=== PATIENT | female | born 1955 | race Caucasian/White ===

== ENCOUNTER 2020-06-18 03:52 | Inpatient (IN) | payer BC ==
[~2020-06-18] VITALS: Ht 162.5 cm; Wt 96.2 kg
[~2020-06-18 03:52] MED LIST: ANUSOL-HC25 MG R; DULCOLAX10 MG RC; EXCEDRIN PO; MIRALAX POWDER17 G1 PO; ORASONE5 MG PO
[2020-06-18 04:32] VITALS: BP 142/53
[2020-06-18 05:53] LABS: ALBUMIN 2.5 gm/dl (3.1-4.5); ALKALINE PHOSPHATASE 80 U/L (45-117); BUN 19 mg/dl (7-24); CHLORIDE 97 mmol/L (98-107); CPK 140 U/L (26-192); CREATININE 0.69 mg/dL (0.55-1.02); LDH 418 U/L (84-246); POTASSIUM 2.5 mmol/L (3.5-5.1); SGOT/AST 37 IU/L (3-35); SGPT/ALT 38 U/L (12-78); SODIUM 141 mmol/L (136-145); TOTAL PROTEIN 6.2 gm/dL (6.4-8.2)
[2020-06-18 06:04] LABS: MEAN CELL VOLUME 92.2 fl (81.0-99.0); MEAN CORPUSCULAR HGB 30.1 pg (27.0-31.0); MEAN CORPUSCULAR HGB CONC 32.6 g/dl (33.0-37.0); MEAN PLATELET VOLUME 10.8 fl (9.6-12.3); NUCLEATED RED BLOOD CELL 0.4 % (0.0-0.0); PLATELET COUNT AUTOMATED 365 10*3/uL (130-400); RED BLOOD COUNT 4.12 10*6/uL (4.10-5.10); RED CELL DISTRI WIDTH 13.4 % (0-14.5)
[2020-06-18 06:45] LABS: ATYPICAL LYMPHS 2 % (0-0); TOTAL CELLS COUNTED 100 #CELLS
[2020-06-18 06:46] LABS: PLATELET SUFFICIENCY NORMAL (NORMAL)
[2020-06-18 10:06] LABS: ACT PARTIAL THROMBO TIME 24.2 SECONDS (20.0-32.1)
[2020-06-18 10:57] VITALS: BP 154/65
[2020-06-18 13:37] LABS: ABG BASE EXCESS 10.1 mmol/L (-2.0-2.0); ARTERIAL BLOOD GAS PH 7.522 (7.35-7.45)
[2020-06-18 16:00] VITALS: BP 151/62
[2020-06-18] MEDS ORDERED: HYDROCHLOROTHIA25 M1 PO (17:12)
[2020-06-18 20:00] VITALS: BP 112/51
[2020-06-19] VITALS: BP 138/67
[2020-06-19 07:06] LABS: HEMATOCRIT 33.8 % (37.0-47.0); MEAN CELL VOLUME 92.6 fl (81.0-99.0); MEAN CORPUSCULAR HGB 30.1 pg (27.0-31.0); MEAN CORPUSCULAR HGB CONC 32.5 g/dl (33.0-37.0); MEAN PLATELET VOLUME 10.7 fl (9.6-12.3); PLATELET COUNT AUTOMATED 363 10*3/uL (130-400); RED BLOOD COUNT 3.65 10*6/uL (4.10-5.10); RED CELL DISTRI WIDTH 13.7 % (0-14.5); WHITE BLOOD COUNT 8.3 10*3/uL (4.8-10.8)
[2020-06-19 07:14] LABS: ALBUMIN 2.2 gm/dl (3.1-4.5); BUN 21 mg/dl (7-24); CHLORIDE 103 mmol/L (98-107); CREATININE 0.57 mg/dL (0.55-1.02); LDH 335 U/L (84-246); POTASSIUM 3.1 mmol/L (3.5-5.1); SGOT/AST 25 IU/L (3-35); SGPT/ALT 32 U/L (12-78); SODIUM 141 mmol/L (136-145); TOTAL PROTEIN 5.4 gm/dL (6.4-8.2)
[2020-06-19 07:15] LABS: ALKALINE PHOSPHATASE 71 U/L (45-117)
[2020-06-19 07:17] LABS: CPK 47 U/L (26-192)
[2020-06-19 08:00] VITALS: BP 132/65
[2020-06-19 08:41] LABS: ATYPICAL LYMPHS 3 % (0-0); PLATELET SUFFICIENCY NORMAL (NORMAL); TOTAL CELLS COUNTED 100 #CELLS
[2020-06-19 08:50] LABS: ABG BASE EXCESS 9.6 mmol/L (-2.0-2.0); ARTERIAL BLOOD GAS PH 7.509 (7.35-7.45)
[2020-06-19 12:00] VITALS: BP 129/47
[2020-06-19 18:00] VITALS: BP 118/54
[2020-06-19 20:00] VITALS: BP 126/57
[2020-06-20] VITALS: BP 124/53
[2020-06-20 06:22] LABS: BASO % 0.1 % (0.0-1.0); HEMATOCRIT 33.9 % (37.0-47.0); LYMPH % 18.3 % (27.0-41.0); MEAN CELL VOLUME 93.6 fl (81.0-99.0); MEAN CORPUSCULAR HGB 30.1 pg (27.0-31.0); MEAN CORPUSCULAR HGB CONC 32.2 g/dl (33.0-37.0); MEAN PLATELET VOLUME 10.8 fl (9.6-12.3); MONO # 0.8 10*3/uL (0.1-1.0); MONO % 7.6 % (3.0-9.0); NEUT % 72.8 % (47.0-73.0); PLATELET COUNT AUTOMATED 373 10*3/uL (130-400); RED BLOOD COUNT 3.62 10*6/uL (4.10-5.10)
[2020-06-20 06:34] LABS: ALBUMIN 2.1 gm/dl (3.1-4.5); ALKALINE PHOSPHATASE 69 U/L (45-117); BUN 28 mg/dl (7-24); CHLORIDE 105 mmol/L (98-107); CPK 34 U/L (26-192); LDH 314 U/L (84-246); POTASSIUM 3.5 mmol/L (3.5-5.1); SGOT/AST 21 IU/L (3-35); SGPT/ALT 33 U/L (12-78); SODIUM 141 mmol/L (136-145); TOTAL PROTEIN 5.2 gm/dL (6.4-8.2)
[2020-06-20 08:00] VITALS: BP 146/70
[2020-06-20 10:03] LABS: ABG BASE EXCESS 5.9 mmol/L (-2.0-2.0); ARTERIAL BLOOD GAS PH 7.48 (7.35-7.45)
[2020-06-20 12:00] VITALS: BP 138/71
[2020-06-20 16:00] VITALS: BP 137/73
[2020-06-21] VITALS: BP 103/40
[2020-06-21 07:24] LABS: BASO % 0.2 % (0.0-1.0); EOS % 0.1 % (1.0-4.0); HEMATOCRIT 34.5 % (37.0-47.0); LYMPH # 2.1 10*3/uL (1.3-4.4); LYMPH % 19.5 % (27.0-41.0); MEAN CORPUSCULAR HGB 29.4 pg (27.0-31.0); MEAN CORPUSCULAR HGB CONC 31.3 g/dl (33.0-37.0); MONO # 0.8 10*3/uL (0.1-1.0); MONO % 7.7 % (3.0-9.0); NEUT # 7.7 10*3/uL (2.3-7.9); NEUT % 71.6 % (47.0-73.0); PLATELET COUNT AUTOMATED 367 10*3/uL (130-400); RED BLOOD COUNT 3.67 10*6/uL (4.10-5.10); RED CELL DISTRI WIDTH 13.8 % (0-14.5); WHITE BLOOD COUNT 10.8 10*3/uL (4.8-10.8)
[2020-06-21 07:28] LABS: ALBUMIN 2.2 gm/dl (3.1-4.5); BUN 25 mg/dl (7-24); CHLORIDE 106 mmol/L (98-107); CREATININE 0.59 mg/dL (0.55-1.02); LDH 296 U/L (84-246); POTASSIUM 3.5 mmol/L (3.5-5.1); SGOT/AST 43 IU/L (3-35); SGPT/ALT 46 U/L (12-78); SODIUM 141 mmol/L (136-145); TOTAL PROTEIN 5.4 gm/dL (6.4-8.2)
[2020-06-21 07:29] LABS: ALKALINE PHOSPHATASE 70 U/L (45-117); CPK 32 U/L (26-192)
[2020-06-21 08:00] VITALS: BP 146/60
[2020-06-21 08:56] LABS: ABG BASE EXCESS 6.7 mmol/L (-2.0-2.0); ARTERIAL BLOOD GAS PH 7.477 (7.35-7.45)
[2020-06-21 12:00] VITALS: BP 149/69
[2020-06-21 16:00] VITALS: BP 135/71
[2020-06-21 20:00] VITALS: BP 120/59
[2020-06-22] VITALS: BP 137/57
[2020-06-22 06:28] LABS: BASO % 0.1 % (0.0-1.0); HEMATOCRIT 36.1 % (37.0-47.0); LYMPH # 1.7 10*3/uL (1.3-4.4); LYMPH % 16.6 % (27.0-41.0); MEAN CORPUSCULAR HGB 29.4 pg (27.0-31.0); MEAN CORPUSCULAR HGB CONC 31.3 g/dl (33.0-37.0); MEAN PLATELET VOLUME 10.8 fl (9.6-12.3); MONO # 0.8 10*3/uL (0.1-1.0); MONO % 7.8 % (3.0-9.0); NEUT # 7.7 10*3/uL (2.3-7.9); NEUT % 74.3 % (47.0-73.0); PLATELET COUNT AUTOMATED 403 10*3/uL (130-400); RED BLOOD COUNT 3.84 10*6/uL (4.10-5.10); RED CELL DISTRI WIDTH 13.8 % (0-14.5); WHITE BLOOD COUNT 10.3 10*3/uL (4.8-10.8)
[2020-06-22 06:54] LABS: ALBUMIN 2.3 gm/dl (3.1-4.5); BUN 20 mg/dl (7-24); CHLORIDE 107 mmol/L (98-107); SODIUM 141 mmol/L (136-145)
[2020-06-22 06:58] LABS: ALKALINE PHOSPHATASE 73 U/L (45-117); CREATININE 0.58 mg/dL (0.55-1.02); LDH 273 U/L (84-246); SGOT/AST 40 IU/L (3-35); SGPT/ALT 62 U/L (12-78); TOTAL PROTEIN 5.4 gm/dL (6.4-8.2)
[2020-06-22 08:00] VITALS: BP 155/81
[2020-06-22 08:48] LABS: ABG BASE EXCESS 5.4 mmol/L (-2.0-2.0); ARTERIAL BLOOD GAS PH 7.456 (7.35-7.45)
[2020-06-22 12:00] VITALS: BP 156/75
[2020-06-22 16:00] VITALS: BP 121/64
[2020-06-22 20:00] VITALS: BP 130/64
[2020-06-23] VITALS: BP 128/66
[2020-06-23 07:33] LABS: BASO % 0.1 % (0.0-1.0); HEMATOCRIT 34.8 % (37.0-47.0); LYMPH % 18.7 % (27.0-41.0); MEAN CELL VOLUME 92.3 fl (81.0-99.0); MEAN CORPUSCULAR HGB 29.4 pg (27.0-31.0); MEAN CORPUSCULAR HGB CONC 31.9 g/dl (33.0-37.0); MEAN PLATELET VOLUME 11.4 fl (9.6-12.3); MONO # 0.9 10*3/uL (0.1-1.0); MONO % 8.5 % (3.0-9.0); NEUT # 7.7 10*3/uL (2.3-7.9); NEUT % 71.6 % (47.0-73.0); PLATELET COUNT AUTOMATED 366 10*3/uL (130-400); RED BLOOD COUNT 3.77 10*6/uL (4.10-5.10); RED CELL DISTRI WIDTH 13.9 % (0-14.5); WHITE BLOOD COUNT 10.7 10*3/uL (4.8-10.8)
[2020-06-23 08:00] VITALS: BP 122/76
[2020-06-23 08:10] LABS: ALBUMIN 2.3 gm/dl (3.1-4.5); BUN 23 mg/dl (7-24); CHLORIDE 106 mmol/L (98-107); CREATININE 0.56 mg/dL (0.55-1.02); POTASSIUM 3.9 mmol/L (3.5-5.1); SGOT/AST 24 IU/L (3-35); SGPT/ALT 54 U/L (12-78); SODIUM 140 mmol/L (136-145)
[2020-06-23 08:11] LABS: ALKALINE PHOSPHATASE 64 U/L (45-117); TOTAL PROTEIN 5.2 gm/dL (6.4-8.2)
[2020-06-23 08:45] LABS: ABG BASE EXCESS 6.1 mmol/L (-2.0-2.0); ARTERIAL BLOOD GAS PH 7.471 (7.35-7.45)
[2020-06-23 12:00] VITALS: BP 120/66
[2020-06-23 16:00] VITALS: BP 103/72
[2020-06-23 20:00] VITALS: BP 126/68
[2020-06-24] VITALS: BP 143/63
[2020-06-24 06:15] LABS: EOS % 0.1 % (1.0-4.0); HEMATOCRIT 34.8 % (37.0-47.0); LYMPH # 2.1 10*3/uL (1.3-4.4); LYMPH % 20.1 % (27.0-41.0); MEAN CELL VOLUME 94.1 fl (81.0-99.0); MEAN CORPUSCULAR HGB 29.7 pg (27.0-31.0); MEAN CORPUSCULAR HGB CONC 31.6 g/dl (33.0-37.0); MEAN PLATELET VOLUME 11.2 fl (9.6-12.3); MONO # 0.9 10*3/uL (0.1-1.0); MONO % 8.5 % (3.0-9.0); NEUT # 7.3 10*3/uL (2.3-7.9); NEUT % 70.2 % (47.0-73.0); PLATELET COUNT AUTOMATED 339 10*3/uL (130-400); RED CELL DISTRI WIDTH 14.2 % (0-14.5); WHITE BLOOD COUNT 10.4 10*3/uL (4.8-10.8)
[2020-06-24 06:28] LABS: BUN 25 mg/dl (7-24); CHLORIDE 107 mmol/L (98-107); CREATININE 0.71 mg/dL (0.55-1.02); POTASSIUM 4.2 mmol/L (3.5-5.1); SGOT/AST 25 IU/L (3-35); SGPT/ALT 52 U/L (12-78); SODIUM 141 mmol/L (136-145)
[2020-06-24 06:36] LABS: ALBUMIN 2.3 gm/dl (3.1-4.5); ALKALINE PHOSPHATASE 61 U/L (45-117); TOTAL PROTEIN 5.4 gm/dL (6.4-8.2)
[2020-06-24 08:00] VITALS: BP 119/59
[2020-06-24] MEDS ORDERED: DECADRON6 M1 PO (10:05)
[2020-06-24 12:00] VITALS: BP 128/60
== END 2020-06-24 13:50 | disposition home or self-care (01) | DRG 189 ==
LOC: ED 03:52 → 4E 07:45 → EDHOLD 07:45 → 4E 09:52
PROVIDERS: Emergency Medicine; Internal Medicine Critical Care Medicine; Registered Nurse; ADMIT Internal Medicine; ATTEND Internal Medicine
PROC: XW033E5 Introduction of Remdesivir Anti-infective into Peripheral Vein, Percutaneous Approach, New Technology Group 5 (ICD-10-PCS; principal; 2020-06-18)
PROC: 5A09357 Assistance with Respiratory Ventilation, Less than 24 Consecutive Hours, Continuous Positive Airway Pressure (ICD-10-PCS; 2020-06-18)
PROC: 5A0935A Assistance with Respiratory Ventilation, Less than 24 Consecutive Hours, High Flow/Velocity Cannula (ICD-10-PCS; 2020-06-19)
PROC: 5A09357 Assistance with Respiratory Ventilation, Less than 24 Consecutive Hours, Continuous Positive Airway Pressure (ICD-10-PCS; 2020-06-19)
PROC: 5A0935A Assistance with Respiratory Ventilation, Less than 24 Consecutive Hours, High Flow/Velocity Cannula (ICD-10-PCS; 2020-06-20)
PROC: 5A09357 Assistance with Respiratory Ventilation, Less than 24 Consecutive Hours, Continuous Positive Airway Pressure (ICD-10-PCS; 2020-06-21)
PROC: 5A0935A Assistance with Respiratory Ventilation, Less than 24 Consecutive Hours, High Flow/Velocity Cannula (ICD-10-PCS; 2020-06-21)
PROC: 5A09357 Assistance with Respiratory Ventilation, Less than 24 Consecutive Hours, Continuous Positive Airway Pressure (ICD-10-PCS; 2020-06-22)
PROC: 5A0935A Assistance with Respiratory Ventilation, Less than 24 Consecutive Hours, High Flow/Velocity Cannula (ICD-10-PCS; 2020-06-22)
PROC: 5A09357 Assistance with Respiratory Ventilation, Less than 24 Consecutive Hours, Continuous Positive Airway Pressure (ICD-10-PCS; 2020-06-23)
PROC: 5A09357 Assistance with Respiratory Ventilation, Less than 24 Consecutive Hours, Continuous Positive Airway Pressure (ICD-10-PCS; 2020-06-24)
DX: J96.01 Acute respiratory failure with hypoxia (principal); E44.0 Moderate protein-calorie malnutrition; D68.59 Other primary thrombophilia; R74.01 Elevation of levels of liver transaminase levels; E66.9 Obesity, unspecified; E87.6 Hypokalemia; I10 Essential (primary) hypertension; Z88.0 Allergy status to penicillin; Z80.3 Family history of malignant neoplasm of breast; Z68.36 Body mass index [BMI] 36.0-36.9, adult